=== PATIENT | female | born 1950 | race Caucasian/White ===

== ENCOUNTER → 2016-11-09 | Outpatient (CLI) | payer OTHER ==
[~2016-11-09] MED LIST: ACET-1487 PO; ACET1TAB84 PO; AGM875 PO; ASPCH81 PO; ASPI81TA28 PO; BNC4025 PO; CENTTAB41; DUCOLAX; LOSA100T33 PO; MULT-845 PO; POTA-327 PO; POTA20TA13 PO; VNTHFA/IN INH
[2016-11-09 17:08] LABS: BASO % 0.3 %; BASO ABS # 0.02 K/uL (0-0.2); COMPLETE YES; HEMATOCRIT 42.8 % (37-47); IG% 0.2 %; LYMPH % 21.6 %; LYMPH ABS # 1.34 K/uL (1.2-3.4); MEAN CELL VOLUME 89.5 fL (80-100); MEAN CORPUSCULAR HEMOGLOBIN 30.8 pg (25-34); MEAN CORPUSCULAR HGB CONC 34.3 g/dl (32-36); MEAN PLATELET VOLUME 9.9 fL (7.4-10.4); MONO % 9.2 %; NEUT % 67.7 %; PLATELET COUNT 291 K/uL (130-400); RED BLOOD COUNT 4.78 M/uL (4.2-5.4); WHITE BLOOD COUNT 6.21 K/uL (4.8-10.8)
[2016-11-09 17:26] LABS: ALT/SGPT 28 U/L (12-78); AST/SGOT 18 U/L (15-37); BLOOD UREA NITROGEN 20 mg/dl (7-18); BUN/CREATININE RATIO 27.6 (10-20); CALCIUM 9.2 mg/dl (8.5-10.1); CARBON DIOXIDE 31 mmol/L (21-32); CHLORIDE 105 mmol/L (98-107); CREATININE 0.74 mg/dl (0.60-1.20); GLUCOSE 100 mg/dl (70-99); POTASSIUM 3.9 mmol/L (3.5-5.1); SODIUM 142 mmol/L (136-145)
[2016-11-09 17:37] LABS: ALB/GLOB RATIO 1.1 (0.9-2); ALKALINE PHOSPHATASE 89 U/L (45-117); CHOLESTEROL 140 mg/dl (0-200); CHOLESTEROL/HDL RATIO 2.5; HDL CHOLESTEROL 55 mg/dl; LDL CHOLESTEROL CALCULATED 52 mg/dl; THYROID STIMULATING HORMONE 0.844 uIu/ml (0.300-4.500); TRIGLYCERIDES 166 mg/dl (0-150); VERY LOW DENSITY LIPOPROT CALC 33 mg/dl
== END | disposition home or self-care (01) ==
LOC: C.LABBC 14:00
PROVIDERS: ATTEND Internal Medicine Geriatric Medicine
DX: I10 Essential (primary) hypertension (principal); R73.9 Hyperglycemia, unspecified; E78.5 Hyperlipidemia, unspecified; E66.9 Obesity, unspecified

== ENCOUNTER 2017-04-28 16:14 | Emergency (ER) | payer OTHER ==
[~2017-04-28] VITALS: Ht 162.6 cm; Wt 132.3 kg
[~2017-04-28 16:14] MED LIST changes: -ACET-1487 PO; -ASPI81TA28 PO; -LOSA100T33 PO; -MULT-845 PO; -POTA20TA13 PO; -VNTHFA/IN INH
[2017-04-28 16:19] VITALS: TEMP 36.4; Ht 162.6 cm; Wt 132.3 kg
[2017-04-28] MEDS ORDERED: ALBUT/IPRATROP 3MG/0.5MG NEB 3 ML VIAL INH STA (16:24)
--- NOTE | 2017-04-28 16:39 | EMERGENCY ROOM VISIT NOTE ---
History Report prepared by Lauri: Abhi Greenberg Under the Supervision of: Dr. Yuri Plasencia M.D. First contact with patient: 16:23 Chief Complaint: SHORTNESS OF BREATH Stated Complaint: TROUBLE BREATHING History of Present Illness The patient is a 66 year old female who presents to the Emergency Room with complaints of persistent shortness of breath on exertion that started over a week ago. She says that she had a cold over 3 weeks ago, and saw her doctor who put her on Augmentin, which cleared up her symptoms. The patient states that over a week ago, she walked to the grocery store, and started to feel tired with shaking. She says she then got very short of breath and sweaty walking back from the grocery store. The patient was seen for her shortness of breath around 3 days ago at [facility], and was put on Prednisone. The patient says that the medications have not been working, and she used to walk 2 miles per day but cannot anymore. She adds that she has had a bit of a cough with the exertional shortness of breath. The patient says that when she is resting she feels fine, and she has been sleeping well. She denies any leg swelling or notable urinary symptoms. The patient's [id number] notes that the patient' s used to smoke cigarettes, but the patient has never smoked. She notes no history of COPD, emphysema, blood clots in her legs or lungs, or pneumonia. She has not had any recent long car, plane, or train trips. Source of History: patient, family Onset: Over a week ago Position: other (global - shortness of breath on exertion) Timing: other (persistent) Modifying Factors (Worsening): exertion Modifying Factors (Relieving): rest Associated Symptoms: + fatigue, No urinary symptoms Note: Associated symptoms: Got sweaty and shaky walking back from grocery store. Denies leg swelling. Review of Systems See HPI for pertinent positives & negatives. A total of 10 systems reviewed and were otherwise negative. Past Medical & Surgical Medical Problems: (1) HTN (hypertension) (2) Kidney stones Family History Diabetes mellitus FH: heart disease FHx: gallbladder disease Hypertension Kidney disease Social History Smoking Status: Never Smoker Marital Status: Occupation Status: retired Current/Historical Medications Scheduled Acetaminophen (Tylenol Arthritis Ext Rel), 1,300 MG PO HS Albuterol Hfa (Ventolin Hfa), 2-4 PUFFS INH Q6H Aspirin (Aspirin Ec), 81 MG PO QAM Hctz/Losartan (Hyzaar 12.5MG/100MG), 1 TAB PO QAM Multiple Vitamins W/ Minerals (Centrum Silver Adult 50+), 1 TAB PO QAM Potassium Chloride Microencaps (Potassium Chloride Er), 20 MEQ PO QAM Allergies Coded Allergies: Latex (Verified Allergy, Mild, ., 04/20/13) ITCHINESS OF HANDS WITH LATEX GLOVES Physical Exam Vital Signs Date Time Temp Pulse Resp B/P (MAP) Pulse Ox O2 Delivery O2 Flow Rate FiO2 04/28/17 18:56 70 20 191/103 99 04/28/17 18:15 76 20 192/94 96 Room Air 04/28/17 17:19 84 04/28/17 16:50 96 Room Air 04/28/17 16:30 96 Room Air 04/28/17 16:19 36.4 80 24 187/99 93 Physical Exam GENERAL: Patient is in no acute distress. HEENT: No acute trauma, normocephalic atraumatic, mucous membranes moist, no nasal congestion, no scleral icterus. NECK: No stridor, no adenopathy, no meningismus, trachea is midline. LUNGS: Decreased breath sounds. Breath sounds are equal bilaterally. No wheezing or rhonchi. HEART: Without murmurs gallops or rubs, regular rate and rhythm. ABDOMEN: Soft, nontender, bowel sounds positive, no hernias, no peritonitis. EXTREMITIES: Mild bilateral pedal edema. No cyanosis, full range of motion of all the joints without pain or difficulty, no signs for acute trauma. NEUROLOGIC: Oriented x 3, no acute motor or sensory deficits, no focal weakness. SKIN: No rash, no jaundice, no diaphoresis. Medical Decision & Procedures ER Provider Diagnostic Interpretation: X-ray results as stated below per interpretation by me and the radiologist: CHEST ONE VIEW PORTABLE CLINICAL HISTORY: Respiratory distress COMPARISON STUDY: No previous studies for comparison. FINDINGS: The cardiac and mediastinal contours are normal. There is no evidence of focal pulmonary consolidation. There is no evidence of failure. No pleural effusions are visualized.[ IMPRESSION: No active disease in the chest. Electronically signed by: Moises Jones M.D. 04/28/2017 4:56 PM Dictated Date/Time: 04/28/2017 4:55 PM Laboratory Results 04/28/17 17:20 Red Blood Count 5.11, Mean Corpuscular Volume 88.6, Mean Corpuscular Hemoglobin 31.7, Mean Corpuscular Hemoglobin Concent 35.8, Mean Platelet Volume 9.4, Neutrophils (%) (Auto) 72.5, Lymphocytes (%) (Auto) 21.8, Monocytes (%) (Auto) 4.9, Eosinophils (%) (Auto) 0.1, Basophils (%) (Auto) 0.3, Neutrophils # (Auto) 5.53, Lymphocytes # (Auto) 1.66, Monocytes # (Auto) 0.37, Eosinophils # (Auto) 0.01, Basophils # (Auto) 0.02 04/28/17 17:20 Test 04/28/17 17:00 04/28/17 17:20 Urine Color YELLOW Urine Appearance CLEAR (CLEAR) Urine pH >= 9.0 (4.5-7.5) Urine Specific Biggers 1.012 (1.000-1.030) Urine Protein NEG (NEG) Urine Glucose (UA) NEG (NEG) Urine Ketones NEG (NEG) Urine Occult Blood 1+ (NEG) Urine Nitrite NEG (NEG) Urine Bilirubin NEG (NEG) Urine Urobilinogen NEG (NEG) Urine Leukocyte Esterase NEG (NEG) Urine WBC (Auto) 1-5 /hpf (0-5) Urine RBC (Auto) 5-10 /hpf (0-4) Urine Hyaline Casts (Auto) 0 /lpf (0-5) Urine Epithelial Cells (Auto) 0-5 /lpf (0-5) Urine Bacteria (Auto) NEG (NEG) White Blood Count 7.62 K/uL (4.8-10.8) Red Blood Count 5.11 M/uL (4.2-5.4) Hemoglobin 16.2 g/dL (12.0-16.0) Hematocrit 45.3 % (37-47) Mean Corpuscular Volume 88.6 fL (80-100) Mean Corpuscular Hemoglobin 31.7 pg (25-34) Mean Corpuscular Hemoglobin Concent 35.8 g/dl (32-36) Platelet Count 316 K/uL (130-400) Mean Platelet Volume 9.4 fL (7.4-10.4) Neutrophils (%) (Auto) 72.5 % Lymphocytes (%) (Auto) 21.8 % Monocytes (%) (Auto) 4.9 % Eosinophils (%) (Auto) 0.1 % Basophils (%) (Auto) 0.3 % Neutrophils # (Auto) 5.53 K/uL (1.4-6.5) Lymphocytes # (Auto) 1.66 K/uL (1.2-3.4) Monocytes # (Auto) 0.37 K/uL (0.11-0.59) Eosinophils # (Auto) 0.01 K/uL (0-0.5) Basophils # (Auto) 0.02 K/uL (0-0.2) RDW Standard Deviation 40.1 fL (36.4-46.3) RDW Coefficient of Variation 12.5 % (11.5-14.5) Immature Granulocyte % (Auto) 0.4 % Immature Granulocyte # (Auto) 0.03 K/uL (0.00-0.02) Prothrombin Time 10.6 SECONDS (9.0-12.0) Prothromb Time International Ratio 1.0 (0.9-1.1) Activated Partial Thromboplast Time 25.9 SECONDS (21.0-31.0) Partial Thromboplastin Ratio 1.0 Anion Gap 8.0 mmol/L (3-11) Est Creatinine Clear Calc Drug Dose 97.2 ml/min Estimated GFR () 94.1 Estimated GFR (Non- 81.2 BUN/Creatinine Ratio 29.3 (10-20) Calcium Level 9.9 mg/dl (8.5-10.1) Total Bilirubin 1.1 mg/dl (0.2-1) Aspartate Amino Transf (AST/SGOT) 26 U/L (15-37) Alanine Aminotransferase (ALT/SGPT) 35 U/L (12-78) Alkaline Phosphatase 84 U/L (45-117) Troponin I < 0.015 ng/ml (0-0.045) Total Protein 7.3 gm/dl (6.4-8.2) Albumin 4.0 gm/dl (3.4-5.0) Globulin 3.3 gm/dl (2.5-4.0) Albumin/Globulin Ratio 1.2 (0.9-2) Chemistry Specimen Hemolysis Laboratory results reviewed by me. D-dimer of 276: within normal range. Medications Administered Medications (Trade) Dose Ordered Sig/Kimberley Route Start Time Stop Time Status Last Admin Dose Admin Albuterol/ Ipratropium (Duoneb) 3 ml NOW STAT INH 04/28/17 16:24 04/28/17 16:34 DC 04/28/17 17:01 3 ML Albuterol (Ventolin Hfa Inhaler) 2 puffs NOW ONCE INH 04/28/17 18:30 04/28/17 18:31 DC 04/28/17 18:52 2 PUFFS ECG Indication: SOB/dyspnea Rate (beats per minute): 69 Rhythm: normal sinus Findings: no acute ischemic change, no ectopy, other (LVH) ED Course 1623: The patient was evaluated in room A10. A complete history and physical exam was performed. 1624: Ordered Duoneb 3 ml INH. 1830: Ordered Ventolin Hfa Inhaler 2 puffs INH. 1839: Reevaluated the patient and she is resting comfortably. Discussed results and discharge instructions: she verbalized understanding and agreement. The patient is ready for discharge. Medical Decision Differential diagnosis includes but is not limited to bronchitis or pneumonia, CHF, bronchospasm, PE, cardiac ischemia, anemia, electrolyte imbalance. There is no leukocytosis or concerning anemia. No significant electrolyte abnormality, kidney failure or hepatitis. EKG shows a sinus rhythm, no acute ischemia. Cardiac enzyme testing times one is not consistent with acute cardiac injury. Urinalysis does not show evidence for infection. Chest x-ray does not show CHF or pneumonia. There is no pneumothorax. D-dimer testing is negative. With a negative d-dimer and my low suspicion for PE, I will stop the workup for this diagnosis. The patient was given a DuoNeb, this helped her breathing markedly. She received albuterol via [facility]. The patient was somewhat hypertensive while in our department. This may be a situational hypertension but she should follow with her doctors office for a recheck. She is asymptomatic with the higher blood pressure. I think the patient has an acute bronchitis with bronchospasm. The bronchospasm has caused her dyspnea. She already had antibiotics. She is currently on prednisone. I'm going to add albuterol. She should follow with her doctor and return here if not improving or worsening. Medication Reconcilliation Current Medication List: was personally reviewed by me Blood Pressure Screening Patient's blood pressure: Elevated blood pressure Blood pressure disposition: Referred to PCP Impression Primary Impression: SOB (shortness of breath) Additional Impressions: Acute bronchitis Bronchospasm Scribe Attestation The scribe's documentation has been prepared under my direction and personally reviewed by me in its entirety. I confirm that the note above accurately reflects all work, treatment, procedures, and medical decision making performed by me. Departure Information Dispostion Home / Self-Care Prescriptions Albuterol Hfa (VENTOLIN HFA) 200 Puffs/07759 Mcg Aers 2-4 PUFFS INH Q6H, #1 INHALER Prov: Yuri Plasencia M.D. 04/28/17 Referrals Ab Morel M.D. (PCP) Patient Instructions My [facility] Additional Instructions continue the prednisone start albuterol 3 puffs every 4 hours as needed rest return for worsening breathing or if not improving lab testing and imaging was all ok today Problem Qualifiers Additional Impressions: Acute bronchitis Bronchitis organism: unspecified organism Qualified Codes: J20.9 - Acute bronchitis, unspecified
[2017-04-28 16:50] VITALS: O2SAT 96
--- NOTE | 2017-04-28 16:57 | DIAGNOSTIC IMAGING REPORT ---
CHEST ONE VIEW PORTABLE CLINICAL HISTORY: Respiratory distress COMPARISON STUDY: No previous studies for comparison. FINDINGS: The cardiac and mediastinal contours are normal. There is no evidence of focal pulmonary consolidation. There is no evidence of failure. No pleural effusions are visualized.[ IMPRESSION: No active disease in the chest. Electronically signed by: Moises Jones M.D. 04/28/2017 4:56 PM Dictated Date/Time: 04/28/2017 4:55 PM
[2017-04-28 17:07] LABS: URINE APPEARANCE CLEAR (CLEAR); URINE BILIRUBIN NEG (NEG); URINE COLOR YELLOW; URINE EPITHELIAL CELL AUTO 0-5 /lpf (0-5); URINE NITRITE NEG (NEG); URINE PH >= 9.0 (4.5-7.5); URINE SPECIFIC GRAVITY 1.012 (1.000-1.030); UROBILINOGEN NEG (NEG)
[2017-04-28] MEDS ORDERED: MULT-845 PO (17:09)
[2017-04-28] MEDS ORDERED: POTA20TA13 PO (17:09)
[2017-04-28] MEDS ORDERED: ACET-1487 PO (17:09)
[2017-04-28] MEDS ORDERED: LOSA100T26 PO (17:09)
[2017-04-28] MEDS ORDERED: ASPI81TA28 PO (17:09)
[2017-04-28 17:19] LABS: MANUAL MICROSCOPIC REQUIRED? NO; REVIEW REQ? NO
[2017-04-28 17:30] LABS: BASO % 0.3 %; BASO ABS # 0.02 K/uL (0-0.2); COMPLETE YES; EOS % 0.1 %; HEMATOCRIT 45.3 % (37-47); IG% 0.4 %; LYMPH % 21.8 %; LYMPH ABS # 1.66 K/uL (1.2-3.4); MEAN CELL VOLUME 88.6 fL (80-100); MEAN CORPUSCULAR HEMOGLOBIN 31.7 pg (25-34); MEAN CORPUSCULAR HGB CONC 35.8 g/dl (32-36); MEAN PLATELET VOLUME 9.4 fL (7.4-10.4); MONO % 4.9 %; NEUT % 72.5 %; PLATELET COUNT 316 K/uL (130-400); RED BLOOD COUNT 5.11 M/uL (4.2-5.4); WHITE BLOOD COUNT 7.62 K/uL (4.8-10.8)
[2017-04-28 17:42] LABS: PROTHROMBIN TIME (PATIENT) 10.6 SECONDS (9.0-12.0)
[2017-04-28 18:10] LABS: ALB/GLOB RATIO 1.2 (0.9-2); ALKALINE PHOSPHATASE 84 U/L (45-117); ALT/SGPT 35 U/L (12-78); AST/SGOT 26 U/L (15-37); BLOOD UREA NITROGEN 22 mg/dl (7-18); BUN/CREATININE RATIO 29.3 (10-20); CALCIUM 9.9 mg/dl (8.5-10.1); CARBON DIOXIDE 27 mmol/L (21-32); CHLORIDE 105 mmol/L (98-107); CREATININE 0.76 mg/dl (0.60-1.20); GLUCOSE 105 mg/dl (70-99); POTASSIUM 4.2 mmol/L (3.5-5.1); SODIUM 140 mmol/L (136-145)
[2017-04-28] MEDS ORDERED: ALBUTEROL HFA 8 GM INHALER INH ONE (18:30)
[2017-04-28] MEDS ORDERED: VNTHFA/IN INH (18:44)
[2017-04-28 18:56] VITALS: BP 191/103; PULSE 70; O2SAT 99
== END 2017-04-28 18:58 | disposition home or self-care (01) ==
LOC: C.EDB 16:15 → C.EDA 18:58
DX: J20.9 Acute bronchitis, unspecified (principal); I10 Essential (primary) hypertension; Z87.442 Personal history of urinary calculi; Z79.82 Long term (current) use of aspirin; Z79.899 Other long term (current) drug therapy; Z91.040 Latex allergy status; Z83.3 Family history of diabetes mellitus; Z82.49 Family history of ischemic heart disease and other diseases of the circulatory system; Z83.79 Family history of other diseases of the digestive system; Z84.1 Family history of disorders of kidney and ureter

== ENCOUNTER → 2017-05-04 | Outpatient (CLI) | payer OTHER ==
[~2017-05-04] MED LIST changes: +ACET-1487 PO; -ACET1TAB84 PO; -AGM875 PO; -ASPCH81 PO; +ASPI81TA28 PO; -BNC4025 PO; -CENTTAB41; -DUCOLAX; +LOSA100T26 PO; +MULT-845 PO; +OPTIRAY 320 IV PRN; -POTA-327 PO; +POTA20TA13 PO; +VNTHFA/IN INH
--- NOTE | 2017-05-04 14:13 | DIAGNOSTIC IMAGING REPORT ---
CT ANGIOGRAM OF THE CHEST CLINICAL HISTORY: Atypical chest pain COMPARISON STUDY: Chest x-ray dated 04/28/2017 TECHNIQUE: Following the IV administration of 98 mL of Optiray-320, CT angiogram of the thorax was performed from the thoracic inlet to the lung bases utilizing the pulmonary embolus protocol. Images are reviewed in the axial, sagittal, and coronal planes. IV contrast was administered without complication. MIP imaging was performed. A dose lowering technique was utilized adhering to the principles of ALARA. CT DOSE: 503.55 mGycm FINDINGS: No pathologically enlarged axillary mediastinal or hilar lymph nodes were visualized. The ascending thoracic aorta measures 35 mm. There were no pulmonary artery filling defects to indicate acute pulmonary embolism. No pleural effusions are visualized. There are mild dependent atelectatic changes. There is no focal pulmonary consolidation. IMPRESSION: 1. No evidence of acute pulmonary embolism 2. No evidence of focal pulmonary consolidation Electronically signed by: Moises Jones M.D. 05/04/2017 2:12 PM Dictated Date/Time: 05/04/2017 2:01 PM
== END | disposition home or self-care (01) ==
LOC: C.CTS 12:52
PROVIDERS: ATTEND Internal Medicine Geriatric Medicine
DX: R05 Cough (principal); R06.02 Shortness of breath

== ENCOUNTER → 2017-05-31 | Outpatient (CLI) | payer OTHER ==
[~2017-05-31] MED LIST changes: -OPTIRAY 320 IV PRN
--- NOTE | 2017-06-04 12:30 | CODING QUERY MEDICAL NECESSITY ---
SUPPORTING DIAGNOSIS NEEDED A supporting diagnosis is required for the test/procedure performed on this patient in order for us to be reimbursed by the patient's insurance. Please provide a supporting diagnosis for the following test/procedure listed below next to the test name along with your signature. *If there is no additional diagnosis for this patient that would support the following test/procedure please document that below next to the test/procedure. Test(s)/Procedure(s) that require a supporting diagnosis: * DXA, BONE DENSITY AXIAL DIAGNOSIS: Provider Signature: Date: Thank you Stef[employer] Once completed, please kindly fax back to [phone] For questions please call [phone]
== END | disposition home or self-care (01) ==
LOC: C.MAMM 10:14
PROVIDERS: ATTEND Physician Assistant
DX: Z00.00 Encounter for general adult medical examination without abnormal findings (principal)

== ENCOUNTER → 2017-06-04 | Outpatient (CLI) | payer OTHER ==
[~2017-06-04] MED LIST changes: +ATROPINE SULFATE 0.1 MG/ML 5ML SYR ONE; +DOBUTamine 500MG / 250ML D5W ONE; -LOSA100T26 PO; +LOSA100T33 PO; +METOPROLOL TARTRATE 1 MG/ML VIAL ONE
--- NOTE | 2017-06-04 13:11 | DOBUTAMINE ECHO ---
*NOTICE TO RECEIVING LIBERTARIAN AGENCY This information is strictly Confidential and protected under [place] law. [place] law prohibits you from making any further disclosure of this information unless further disclosure is expressly permitted by the written consent of the person to whom it pertains or is authorized by law. A general authorization for the release of medical or other information is not sufficient for this purpose. Hospital accepts no responsibility if the information is made available to any other person, INCLUDING THE PATIENT. Interpretation Summary * Name: MAGDY MCLAUGHLIN Study Date: 06/04/2017 11:25 AM BP: 178/58 mmHg * Patient Location: [facility] HR: 74 * : 1950 (M/d/yyyy) Gender: Female Height: 64 in * Age: 66 yrs Ethnicity: [place] Weight: 291 lb * Ordering Physician: Ab Morel MD * Referring Physician: Ab Morel MD * Performed By: Brit Harvey [facility] * * Reason For Study: Shortness of breath * BSA: 2.3 m2 * -- Conclusions -- * 1. Negative dobutamine stress echo for ischemia at 95% MPHR. * 2. Negative dobutamine ECG. * 3. Grossly normal resting LV size and function. Procedure Details * DOBUTAMINE ECHO, CPT#25136 * A contrast injection of Definity was performed to improve assessment of LV function. * Contrast was injected into an intravenous site in the left arm. * One vial of Definity ultrasound contrast was diluted in normal saline to a total volume of 10 ml. A total of '12' ml of solution was administered during imaging. * Lot # [id number] of Definity utilized for procedure. * Expiration date JUL 26. * The attending nurse who injected the contrast agent was Deanne Levine RN. Left Ventricular Findings with Stress * This was essentially a normal study. Left Ventricle * The left ventricle is grossly normal size. * Ejection Fraction = 55-60%. * The left ventricular wall motion is normal at rest. * The left ventricular ejection fraction increases normally with stress. The left ventricular end-systolic cavity size reduces post-stress (normal response). The left ventricular wall motion with stress is normal. Pericardium * There is no pericardial effusion. Stress Parameters * Normal baseline electrocardiogram. * Stress ECG: No ST changes. Isolated premature ventricular contractions were present. * Stress ECG: No ST changes. No arrhythmias. * The stress portion of this study was personally supervised by the undersigned interpreting physician. * Rest heart rate was '74' BPM. * Rest blood pressure was '178/58' * Maximum heart rate achieved was 146 bpm. * Maximum heart rate was 95 % of maximum age-predicted heart rate. * Maximum blood pressure was '200/71' * Maximum Dobutamine infusion rate was '40' mcg/kg/min. * Dobutamine infusion was terminated due to achieving target heart rate * A total of 5 mg of IV Metoprolol was administered to reverse Dobutamine-induced tachycardia. Left Ventricular Findings with Stress * The study was diagnostic quality.
== END | disposition home or self-care (01) ==
LOC: C.CPL 11:04
PROVIDERS: ATTEND Internal Medicine Geriatric Medicine
DX: R06.02 Shortness of breath (principal)

== ENCOUNTER → 2017-07-19 | Outpatient (CLI) | payer OTHER ==
[~2017-07-19] MED LIST changes: -ATROPINE SULFATE 0.1 MG/ML 5ML SYR ONE; -DOBUTamine 500MG / 250ML D5W ONE; -METOPROLOL TARTRATE 1 MG/ML VIAL ONE
--- NOTE | 2017-07-20 07:49 | MAMMOGRAPHY REPORT ---
BILATERAL DIGITAL DIAGNOSTIC MAMMOGRAM TOMOSYNTHESIS WITH CAD: 07/19/2017 CLINICAL HISTORY: 66-year-old woman with a family history of breast cancer presents for two-year foll ow-up of probably benign groupings of punctate and amorphous microcalcifications in the upper outer p osterior right breast. Also due for annual bilateral exam. TECHNIQUE: Bilateral CC and MLO 2-D and tomosynthesis images were obtained. Current study was also e valuated with a Computer Aided Detection (CAD) system. COMPARISON: Comparison is made to exams dated: 07/17/2016 mammogram, 01/24/2016 mammogram, 07/24/2015 mammogram, 07/15/2015 mammogram, 07/12/2014 mammogram, and 07/10/2013 mammogram - [facility]. BREAST COMPOSITION: There are scattered areas of fibroglandular density in both breasts. FINDINGS: The parenchymal pattern is similar to prior mammograms. There is stable nodularity of the right breast including a prominent circumscribed mass in the medial breast. There are benign-appeari ng coarse calcifications in both breasts. The spot magnification views redemonstrate 2 faint groupin gs of punctate and amorphous microcalcifications in the upper outer posterior right breast measuring approximately 3 mm. These are stable based on prior spot magnification views dating back to at least 01/24/2016 and likely 07/24/2015, therefore likely benign. No associated architectural distortion, obvious mass or asymmetry. No other new suspicious calcifications are identified bilaterally. Anoth er 12 month follow-up diagnostic mammogram including spot magnification views is recommended to ensur e longer stability. IMPRESSION: ACR-BI-RADS CATEGORY 3: PROBABLY BENIGN A 12 month follow-up bilateral diagnostic mammogram including spot magnification views of the right b reast is recommended to ensure longer stability of 2 faint groupings of punctate and amorphous microc alcifications in the right upper outer quadrant. Bilateral screening mammography will also be due at that time. These results and recommendations were discussed with the patient at the time of the exam. Approximately 10% of breast cancers are not detected with mammography. A negative mammographic report should not delay biopsy if a clinically suggestive mass is present. Emilee Gordon M.D. ay/:07/19/2017 15:18:15 Digital Marketing Project Manager: Светлана SCHNEIDER)([place]), [facility] letter sent: Follow Up Recommended 3 BI-RADS Code: ACR-BI-RADS Category 3: Probably Benign
== END | disposition home or self-care (01) ==
LOC: C.MAMM 13:31
PROVIDERS: ATTEND Internal Medicine Geriatric Medicine
DX: R92.0 Mammographic microcalcification found on diagnostic imaging of breast (principal); Z80.3 Family history of malignant neoplasm of breast

== ENCOUNTER → 2017-11-10 | Outpatient (CLI) | payer OTHER ==
[~2017-11-10] MED LIST changes: -VNTHFA/IN INH
[2017-11-10 17:31] LABS: BLOOD UREA NITROGEN 21 mg/dl (7-18); CALCIUM 9.1 mg/dl (8.5-10.1); CARBON DIOXIDE 31 mmol/L (21-32); CREATININE 0.77 mg/dl (0.60-1.20); GLUCOSE 92 mg/dl (70-99); POTASSIUM 3.8 mmol/L (3.5-5.1); SODIUM 137 mmol/L (136-145)
[2017-11-11 06:35] LABS: HEMOGLOBIN A1C 5.7 % (4.5-5.6)
== END | disposition home or self-care (01) ==
LOC: C.LABBC 14:01
PROVIDERS: ATTEND Internal Medicine Geriatric Medicine
DX: I10 Essential (primary) hypertension (principal); R92.8 Other abnormal and inconclusive findings on diagnostic imaging of breast; R73.9 Hyperglycemia, unspecified

== ENCOUNTER 2023-10-20 12:06 | Inpatient (IN) ==
[2023-10-20 13:21] LABS: Appearance Urine Clear (Clear); Bacteria Urine Automated Negative (Negative); Bilirubin Urine Negative (Negative); Blood Urine 3+ (Negative); Cast Urine Automated 0 /lpf (0-5); Color Urine Yellow; Glucose Urine UA Negative (Negative); Ketones Urine Negative (Negative); Leukocyte Esterase Urine Negative (Negative); Nitrite Urine Negative (Negative); Protein Urine Negative (Negative); Specific Gravity Urine 1.005 (1.000-1.030); Urobilinogen Urine Negative (Negative)
[2023-10-20 13:29] LABS: Basophils # (auto) 0.03 K/uL (0.00-0.20); Basophils % (auto) 0.5 %; Eosinophils # (auto) 0.02 K/uL (0.00-0.50); Eosinophils % (auto) 0.3 %; Hematocrit (blood only) 45.1 % (37.0-47.0); Immature Granulocytes # (auto) 0.03 K/uL (0.01-0.20); Immature Granulocytes % (auto) 0.5 %; Lymphocytes # (auto) 1.41 K/uL (1.20-3.40); Mean Corpuscular Hemoglobin 30.5 pg (25.0-34.0); Mean Corpuscular Hgb Conc 35.5 g/dL (32.0-36.0); Mean Corpuscular Volume 86.1 fL (80.0-100.0); Mean Platelet Volume 9.3 fL (9.4-12.4); Monocytes % (auto) 4.7 %; Neutrophils # (auto) 4.61 K/uL (1.40-6.50); Platelet Count 298 K/uL (130-400); RDW Coefficient of Variation 11.7 % (11.5-14.5); RDW Standard Deviation 36.6 fL (36.4-46.3); Red Blood Count 5.24 M/uL (4.20-5.40)
[2023-10-20 13:54] LABS: Alanine Aminotransferase 24 U/L (7-52); Albumin Globulin Ratio 1.9 (0.9-2); Albumin Level 4.7 gm/dl (3.4-5.0); Alkaline Phosphatase 88 U/L (34-104); Anion Gap 10 (3-11); Aspartate Aminotransferase 30 U/L (13-39); BUN Creatinine Ratio 26.3 (10-20); Bilirubin,Total 1.3 mg/dl (0.2-1.0); Blood Urea Nitrogen 20 mg/dl (6-23); Calcium 10.1 mg/dl (8.6-10.3); Carbon Dioxide 24 mmol/L (21-32); Chloride 104 mmol/L (98-107); Est GFR (African American) 89.6 ml/min; Est GFR (Non-African American) 77.3 ml/min; Globulin 2.5 gm/dl (2.5-4.0); Glucose 126 mg/dl (70-99(Fasting)); Lipase 27 U/L (11-82); Potassium 3.6 mmol/L (3.5-5.1); Sodium 138 mmol/L (136-145); Total Protein 7.2 gm/dl (6.0-8.3)
--- NOTE | 2023-10-20 14:53 | Emergency Department Note ---
ED Provider Note History of Present Illness Chief Complaint: Kidney Stone Stated Complaint: AB PAIN Time Seen by Provider: 10/20/23 14:52 This is a 73-year-old female with a history of kidney stones, reflux, who presents to the emergency department with pressure in her lower abdomen as well as the right lower abdomen with associated urinary urgency and frequency. Symptoms started earlier this morning. Pain is relatively constant but does seem to come and go in waves. She has a little bit of pain in her right flank. She woke up and had several episodes of emesis this morning but has not had any vomiting since. Was able to eat some breakfast earlier today. She describes her discomfort as "pressure" in the lower abdomen. She has not had any fevers but felt cold earlier today. Denies any chest pain or shortness of breath. History of cholecystectomy, still has her appendix. Patient saw urology yesterday for cystoscopy due to hematuria. Has had a stent placed in 2019 for kidney stone. Still has her appendix. Home Medications Medication Instructions Recorded Confirmed Type acetaminophen 650 mg 650 mg PO HS 01/03/19 10/20/23 History tablet,extended release (Tylenol Arthritis Pain) magnesium 250 mg tablet 250 mg PO PM 01/03/19 10/20/23 History multivitamin 1 tab PO QAM 01/03/19 10/20/23 History cholecalciferol (vitamin D3) 50 50 mcg PO DAILY 04/24/20 10/20/23 History mcg (2,000 unit) capsule amlodipine 2.5 mg tablet 2.5 mg PO DAILY #90 tabs 12/26/21 10/20/23 Rx pantoprazole 20 mg tablet,delayed 20 mg PO DAILY 10/19/23 10/20/23 History release cetirizine 10 mg tablet 10 mg PO DAILY 10/20/23 10/20/23 History losartan 100 1 tab PO QAM 10/20/23 10/20/23 History mg-hydrochlorothiazide 25 mg tablet melatonin 1 mg tablet 1 mg PO HS 10/20/23 10/20/23 History polyethylene glycol 3350 17 17 g PO DAILY 10/20/23 10/20/23 History gram/dose oral powder potassium chloride 20 mEq 20 meq PO QAM 10/20/23 10/20/23 History tablet,extended release Allergies Allergy/AdvReac Type Severity Reaction Status Date / Time latex Allergy Mild HANDS ITCH Verified 10/20/23 16:15 WITH GLOVES MELISSA Inhibitors AdvReac Intermediate Cough Verified 10/20/23 16:15 Past Med/Surg History Medical History Prediabetes Ureterolithiasis Osteopenia (~2019) Dyslipidemia Irritable bowel syndrome GERD (gastroesophageal reflux disease) Hiatal hernia History of skin cancer BCC HTN (hypertension) Surgical History History of cystoscopy WITH LITHOTRIPSY AND STONE REMOVAL History of cardiac cath 2015 OR 2016 [facility]-NO STENTS NEEDED-DONE D/T SOB Nausea and vomiting after administration of anesthetic agent AND SLOW TO WAKE UP History of Mohs micrographic surgery for skin cancer History of cataract surgery R/L History of cholecystectomy History of hysterectomy OVARIES LEFT History of colonoscopy Family History Sister Family history of diabetes mellitus Breast cancer Father Myocardial infarction Hypertension Mother Pancreatic cancer Denies family history of Ovarian cancer Prostate cancer Colorectal cancer Social History Smoking Status: Never smoker Second Hand Exposure: Yes (SPOUSE DID BEFORE HE PASSED); Do You Dip or Chew Tobacco: No; Hx Alcohol Use: No Hx Substance Use: No Preferred Language: Stateless Communication Ability: Effective Visual Impairment: Limited Hearing Ability: Normal Bowling Ball Finisher Required: No Beliefs That Will Affect Care: None marital status: / Current Living Situation: Alone current occupational status: retired Other Information That Helps Us Care for You: No Feels Safe at Home: Yes Safety Concerns: Feels Safe At This Time Childhood Exposure to Second-Hand Smoke: Yes caffeine: No Dental Care, Regularly: No Physical Activity Frequency: Daily Physical Activity Frequency Comment: walking daily Seatbelt Use: always Sunscreen Use: Yes Assistive Devices: Cane, Contacts and Glasses Physical Exam Vital Signs Vital Signs - 24 hr 10/20/23 12:41 10/20/23 15:42 10/20/23 16:04 Temperature 98.2 F Temperature Source Temporal Artery Scan Pulse Rate 77 Pulse Rate [Apical] 76 Respiratory Rate 20 23 Respiratory Effort / Characteristics Non-Labored Spontaneous Non-Labored Spontaneous Respiratory Depth Normal Normal Respiratory Pattern Regular Regular Blood Pressure 150/84 H Blood Pressure [Right Arm] 175/78 H Blood Pressure Mean 106 Blood Pressure Mean [Right Arm] 110 Blood Pressure Position [Right Arm] Semi-fowlers Pulse Oximetry 98 99 99 Oxygen Delivery Method Room Air Room Air Room Air Sepsis Recent Fever Within 48 Hours No Sepsis New/Unexplained Change in Mental Status No Sepsis Action Taken by Nursing No Action Required CONSTITUTIONAL: Well developed, well nourished, mildly uncomfortable, nontoxic, otherwise pleasant. Able to ambulate into the exam room. EYES: conjunctivae normal, extraocular muscles intact. ENMT: External ears normal. Nose with normal external appearance, no congestion. Oral mucous membranes moist. Oropharynx normal. NECK: Full active range of motion. RESPIRATORY: Breathing unlabored and symmetric. Lungs clear to auscultation bilaterally. No wheeze, rales, or rhonchi. CARDIOVASCULAR: Regular rate and rhythm. No murmurs, rubs, or gallops. ABDOMEN: Normal bowel sounds. Abdomen is soft. There is reproducible tenderness in the right lower abdomen, mild reproducible tenderness in the left lower abdomen. Percussion of right CVA region triggers sensation that the patient needs to urinate. MUSCULOSKELETAL: Moves all extremities at all joints without pain or difficulty. SKIN: [place], warm, dry. NEUROLOGIC: Awake, alert, oriented. No focal deficits. Course Administered Medications Ceftriaxone Sodium 2,000 mg/ (Dextrose) 50 mls @ 100 mls/hr IV Q24H [facility]; Protocol Stop: 10/22/23 18:59 Last Infusion: 10/20/23 20:41 Dose: Infused Documented By: Admin: 10/20/23 19:56 Dose: 100 mls/hr Documented By: DEBBIE Sodium Chloride (Nss) 1,000 mls @ 80 mls/hr IV .[id number] [facility] Stop: 10/21/23 07:04 Last Admin: 10/20/23 19:07 Dose: 80 mls/hr Documented By: DEBBIE Melatonin (Melatonin 3 Mg Tab) 1.5 mg PO HS [facility] Stop: 11/19/23 20:59 Last Admin: 10/20/23 21:38 Dose: 1.5 mg Documented By: DEBBIE Phenazopyridine HCl (Phenazopyridine Hcl 100 Mg Tab) 100 mg PO TID PRN PRN Reason: Dysuria Stop: 11/19/23 19:31 Last Admin: 10/20/23 19:56 Dose: 100 mg Documented By: DEBBIE Discontinued Medications Sodium Chloride (Nss) 500 mls @ 999 mls/hr IV .Q31M ONE Stop: 10/20/23 15:34 Last Infusion: 10/20/23 16:31 Dose: Infused Documented By: Admin: 10/20/23 15:14 Dose: 999 mls/hr Documented By: ALDA Acetaminophen (Ofirmev) 1,000 mg in 100 mls @ 400 mls/hr IV NOW STA Stop: 10/20/23 17:04 Last Admin: 10/20/23 19:06 Dose: Not Given Documented By: DEBBIE Ketorolac Tromethamine (Ketorolac Tromethamine 15 Mg/Ml Vial) Confirm Administered Dose 15 mg .ROUTE .STK-MED ONE Stop: 10/20/23 15:05 Last Admin: 10/20/23 15:15 Dose: Not Given Documented By: ALDA Ketorolac Tromethamine (Ketorolac Tromethamine 15 Mg/Ml Vial) 15 mg IV NOW STA Stop: 10/20/23 15:05 Last Admin: 10/20/23 15:15 Dose: 15 mg Documented By: ALDA Miscellaneous (Patient's Height &/Or Weight Needed) 1 each N/A Q2H JOSSE Stop: 11/19/23 16:59 Last Admin: 10/20/23 18:20 Dose: 1 each Documented By: HARSHAL Morphine Sulfate (Morphine Sulfate 2 Mg/Ml Carp) 2 mg IV NOW STA Stop: 10/20/23 16:05 Last Admin: 10/20/23 16:25 Dose: 2 mg Documented By: HARSHAL Tamsulosin HCl (Tamsulosin Hcl 0.4 Mg Cap) 0.4 mg PO NOW ONE Stop: 10/20/23 15:59 Last Admin: 10/20/23 16:25 Dose: 0.4 mg Documented By: HARSHAL Medical Decision Making Differential Diagnosis Ureterolithiasis, hydronephrosis, UTI, pyelonephritis, appendicitis, diverticulitis, bladder perforation, gastroenteritis, doubt pneumonia, doubt pulmonary embolism, among other pathology Laboratory Data 10/20/23 13:07 10/20/23 13:07 Lab Results 10/20/23 10/20/23 Range/Units 12:40 13:07 WBC 6.40 (4.8-10.8) K/ul RBC 5.24 (4.20-5.40) M/uL Hgb 16.0 (12.0-16.0) g/dl Hct 45.1 (37.0-47.0) % MCV 86.1 (80.0-100.0) fL MCH 30.5 (25.0-34.0) pg MCHC 35.5 (32.0-36.0) g/dL RDW Std Deviation 36.6 (36.4-46.3) fL RDW Coeff of Gilda 11.7 (11.5-14.5) % Plt Count 298 (130-400) K/uL MPV 9.3 L (9.4-12.4) fL Immature Gran % (Auto) 0.5 % Neut % (Auto) 72.0 % Lymph % (Auto) 22.0 % [place] % (Auto) 4.7 % Eos % (Auto) 0.3 % Baso % (Auto) 0.5 % Neut # (Auto) 4.61 (1.40-6.50) K/uL Lymph # (Auto) 1.41 (1.20-3.40) K/uL [place] # (Auto) 0.30 (0.11-0.59) K/uL Eos # (Auto) 0.02 (0.00-0.50) K/uL Baso # (Auto) 0.03 (0.00-0.20) K/uL Immature Gran # (Auto) 0.03 (0.01-0.20) K/uL Sodium 138 (136-145) mmol/L Potassium 3.6 (3.5-5.1) mmol/L Chloride 104 (98-107) mmol/L Carbon Dioxide 24 (21-32) mmol/L Anion Gap 10 (3-11) BUN 20 (6-23) mg/dl Creatinine 0.76 (0.6-1.2) mg/dl Est Cr Clr Drug Dosing Not Reportable Est GFR ( Amer) 89.6 ml/min Est GFR (Non-Af Amer) 77.3 ml/min BUN/Creatinine Ratio 26.3 H (10-20) Glucose 126 H (70-99(Fasting)) mg/dl Calcium 10.1 (8.6-10.3) mg/dl Total Bilirubin 1.3 H (0.2-1.0) mg/dl AST 30 (13-39) U/L ALT 24 (7-52) U/L Alkaline Phosphatase 88 (34-104) U/L Total Protein 7.2 (6.0-8.3) gm/dl Albumin 4.7 (3.4-5.0) gm/dl Globulin 2.5 (2.5-4.0) gm/dl Albumin/Globulin Ratio 1.9 (0.9-2) Lipase 27 (11-82) U/L Urine Color Yellow Urine Appearance Clear (Clear) Urine pH 8.0 H (4.5-7.5) Ur Specific [place] 1.005 (1.000-1.030) Urine Protein Negative (Negative) Urine Glucose (UA) Negative (Negative) Urine Ketones Negative (Negative) Urine Blood 3+ H (Negative) Urine Nitrite Negative (Negative) Urine Bilirubin Negative (Negative) Urine Urobilinogen Negative (Negative) Ur Leukocyte Esterase Negative (Negative) Urine WBC (Auto) 1-5 (0-5) /hpf Urine RBC (Auto) 10-30 H (0-4) /hpf U Hyaline Cast (Auto) 0 (0-5) /lpf U Epithel Cells (Auto) 10-20 H (0-5) /lpf Urine Bacteria (Auto) Negative (Negative) Imaging Data Radiologist's Impression: Abdomen/Pelvis CT 10/20/23 13:[address] WITHOUT CONTRAST CT DOSE: 1331.66 mGy.cm HISTORY: Acute right-sided flank pain flank pain TECHNIQUE: Multiaxial CT images of the abdomen and pelvis were performed without contrast. A dose lowering technique was utilized adhering to the principles of ALARA. COMPARISON STUDY: Renal ultrasound 10/11/2023, CT abdomen and pelvis 11/29/2018 FINDINGS: Clear lung bases. No free air. Indeterminate 1.2 cm hypodense splenic lesion. [id number] pancreatic atrophy. Unremarkable left adrenal gland. 11 mm right adrenal gland adenoma. Cholecystectomy. Hepatic steatosis. 4 mm nonobstructing calculus of the inferior pole right kidney. 4 mm calculus of the distal right ureter/ureterovesicular junction results in mild right-sided hydroureteronephrosis. 9 mm nonobstructing calculus of the inferior pole left kidney. 2.3 cm water attenuation structure of the lateral interpolar left kidney with an adjacent punctate calcification. No left-sided ureteral calculi or hydronephrosis. Partial distention of the urinary bladder with air in the bladder lumen. Air also noted within the vaginal introitus with air is associated mild soft tissue thickening. No abdominal aortic aneurysm or lymphadenopathy. No bowel obstruction or bowel wall thickening. Tiny hiatal hernia. Colonic diverticulosis. Normal appendix. No ascites or mesenteric inflammation. Degenerative changes of the spine, pelvis and hips. IMPRESSION: 1. A 4 mm calculus of the distal right ureter/ureterovesicular junction results in mild hydroureteronephrosis. 2. Nonobstructing bilateral nephrolithiasis. 3. No bowel obstruction or bowel wall thickening. 4. Colonic diverticulosis. 5. Hepatic steatosis. ACT 112: Negative or not required by law. The above report was generated using voice recognition software. It may contain grammatical, syntax or spelling errors. Electronically signed by: Chirag Henriquez M.D. 10/20/2023 2:56 PM MDM Narrative This is a 73-year-old female with a history of kidney stones, had a cystoscopy yesterday for gross hematuria who presents to the emergency department with lower abdominal pressure worse on the right, had 2 episodes of emesis today and has urinary urgency and frequency now. See above for further details. Patient mildly uncomfortable but certainly nontoxic and otherwise pleasant. She was able to ambulate into triage room 3 where I initially evaluated her due to high ED volumes. She does have some reproducible tenderness in the lower abdomen worse on the right than the left and percussing the right CVA region elicits a sensation that the patient needs to urinate. Her vitals are reassuring. An IV was inserted and labs were obtained. Patient was given IV fluids and IV Toradol. Labs: No leukocytosis or anemia. No thrombocytopenia. No electrolyte disturbance. Renal function normal. Nonspecific elevation of total bilirubin at 1.3, has had this in the past. No transaminitis. Lipase normal. Urine with 3+ blood and 10-20 epithelial cells however no bacteria, leukocyte esterase, or nitrites are appreciated. CT abdomen and pelvis was obtained demonstrating a 4 mm calculus in the right distal ureter/UVJ with mild hydroureteronephrosis. She also has a small amount of air in her bladder and vaginal introitus. I discussed the case with Emilee Morel FORK REPAIRER with [facility] urology given the patient's recent instrumentation. She states that the air in the bladder is secondary to the cystoscopy and is not concerned about that. She does recommend antibiotics given recent instrumentation I reevaluated the patient at bedside, her pain had improved to some extent however she did still have discomfort. Small dose of morphine was ordered. I reviewed admission versus discharge home with close urology follow-up, and patient felt strongly that she did not feel comfortable going home as she lives at home alone, and I am hesitant to prescribe her narcotic medication given her age and risk for falling. [facility]. Urology requested the patient be n.p.o. after midnight. Case reviewed with ED attending Dr. Burroughs who is agreeable with this plan. Impression Ureterolithiasis, Intractable abdominal pain Discharge Plan Visit Data Chief Complaint: Kidney Stone Stated Complaint: AB PAIN ED Provider: Rolando Burroughs ED Midlevel Provider: Carter Mcpherson Discharge Problem: Ureterolithiasis, Intractable abdominal pain Patient Disposition: Admitted As Inpatient Condition: Fair Discharge Instructions Interventions: ED Discharge Assessment Last Done: 10/20/23 18:36
--- NOTE | 2023-10-20 14:57 | CT Scan Report ---
ABDOMEN AND PELVIS CT WITHOUT CONTRAST CT DOSE: 1331.66 mGy.cm HISTORY: Acute right-sided flank pain flank pain TECHNIQUE: Multiaxial CT images of the abdomen and pelvis were performed without contrast. A dose lo wering technique was utilized adhering to the principles of ALARA. COMPARISON STUDY: Renal ultrasound 10/11/2023, CT abdomen and pelvis 11/29/2018 FINDINGS: Clear lung bases. No free air. Indeterminate 1.2 cm hypodense splenic lesion. [id number] ate pancreatic atrophy. Unremarkable left adrenal gland. 11 mm right adrenal gland adenoma. Cholecyst ectomy. Hepatic steatosis. 4 mm nonobstructing calculus of the inferior pole right kidney. 4 mm calculus of the distal right ure ter/ureterovesicular junction results in mild right-sided hydroureteronephrosis. 9 mm nonobstructing calculus of the inferior pole left kidney. 2.3 cm water attenuation structure of the lateral interpol ar left kidney with an adjacent punctate calcification. No left-sided ureteral calculi or hydronephro sis. Partial distention of the urinary bladder with air in the bladder lumen. Air also noted within t he vaginal introitus with air is associated mild soft tissue thickening. No abdominal aortic aneurysm or lymphadenopathy. No bowel obstruction or bowel wall thickening. Tiny hiatal hernia. Colonic diverticulosis. Normal vicente endix. No ascites or mesenteric inflammation. Degenerative changes of the spine, pelvis and hips. IMPRESSION: 1. A 4 mm calculus of the distal right ureter/ureterovesicular junction results in mild hydroureteron ephrosis. 2. Nonobstructing bilateral nephrolithiasis. 3. No bowel obstruction or bowel wall thickening. 4. Colonic diverticulosis. 5. Hepatic steatosis. ACT 112: Negative or not required by law. The above report was generated using voice recognition software. It may contain grammatical, syntax o r spelling errors. Electronically signed by: Chirag Henriquez M.D. 10/20/2023 2:56 PM
[2023-10-20] MEDS: SODIUM CHLORIDE 0.9% 500 ML IV ONE (15:14)
[2023-10-20] MEDS: KETOROLAC TROMETHAMINE 15 MG/ML VIAL IV STA (15:15)
[2023-10-20] MEDS: KETOROLAC TROMETHAMINE 15 MG/ML VIAL ONE (15:15)
[2023-10-20] MEDS: MoRPHine SULFATE 2 MG/ML CARP IV STA (16:25)
[2023-10-20] MEDS: TAMSULOSIN HCL 0.4 MG CAP PO ONE (16:25)
--- NOTE | 2023-10-20 16:45 | History & Physical Report ---
Date of Service October 20, 2023 Assessment & Plan (1) Ureterolithiasis: (2) Hydronephrosis: Plan: Patient is 73-year-old female with PMH HTN, HLD, prediabetes, GERD, kidney stones, obesity presented to ER with complaint of right lower abdominal pain, urinary frequency started early this morning. Cystoscopy 10/19/23 for painless hematuria. In ER patient afebrile, hypertensive, otherwise vitals stable. No leukocytosis. renal functions WNL, UA +blood CT abd/pelvis: A 4 mm calculus of the distal right ureter/ureterovesicular junction results in mild hydroureteronephrosis. Nonobstructing bilateral nephrolithiasis. No bowel obstruction or bowel wall thickening. Urine culture pending In ER given 500ml NSS, Toradol, morphine. Still with discomfort Gentle IVF Will start Rocephin empirically Strain urine Start Flomax Scheduled Tylenol, Toradol, oxycodone, morphine prn pain Bowel regimen Fall precautions NPO midnight Urology consult CBC, BMP in am (3) HTN (hypertension): Plan: BP elevated in ER. May be secondary to underlying pain Treat pain as above. Monitor BP Continue home amlodipine, losartan, HCTZ (4) GERD (gastroesophageal reflux disease): Plan: Continue PPI (5) Prediabetes: Plan: Diet controlled A1c: 6.0 on 09/17/2023 Random glucose 126 Monitor a.m. glucose on labs (6) Dyslipidemia: Plan: Diet controlled DVT Prophylaxis SCDs in case of possible procedure DNR/DNI as per discussion with pt Follows with Dr Hatfield for routine care Pt was seen and care coordinated with Dr Ko. See addendum I spent a total of 75 minutes reviewing notes, outpatient records, labs, medication, coordinating, documenting and providing care for this patient excluding time spent in the performance of separately billed services. History of Present Illness Chief Complaint: abdominal pain Primary Care Provider: Jimmy Hatfield DO Patient is 73-year-old female with PMH HTN, HLD, prediabetes, GERD, kidney stones, obesity presented to ER with complaint of right lower abdominal pain started early this morning. History obtained from patient, outpatient chart review. Patient had cystoscopy yesterday by Dr. Higginbotham for painless gross hematuria. States this morning RLQ abdominal pain that worsened throughout the day. Also complains of nausea and vomiting once. She reports urinary frequency. Denies any noted dysuria or hematuria. [place] chilled today but denies any known fever. Denies diaphoresis, diarrhea, constipation, [place], dizziness, syncope, neck pain, CP, SOB, cough, sore throat, paresthesias, weakness, extremity edema, rashes. Allergies Allergy/AdvReac Type Severity Reaction Status Date / Time latex Allergy Mild HANDS ITCH Verified 10/20/23 16:15 WITH GLOVES MELISSA Inhibitors AdvReac Intermediate Cough Verified 10/20/23 16:15 Home Medications Medication Instructions Recorded Confirmed Type acetaminophen 650 mg 650 mg PO HS 01/03/19 10/20/23 History tablet,extended release (Tylenol Arthritis Pain) magnesium 250 mg tablet 250 mg PO PM 01/03/19 10/20/23 History multivitamin 1 tab PO QAM 01/03/19 10/20/23 History cholecalciferol (vitamin D3) 50 50 mcg PO DAILY 04/24/20 10/20/23 History mcg (2,000 unit) capsule amlodipine 2.5 mg tablet 2.5 mg PO DAILY #90 tabs 12/26/21 10/20/23 Rx pantoprazole 20 mg tablet,delayed 20 mg PO DAILY 10/19/23 10/20/23 History release cetirizine 10 mg tablet 10 mg PO DAILY 10/20/23 10/20/23 History losartan 100 1 tab PO QAM 10/20/23 10/20/23 History mg-hydrochlorothiazide 25 mg tablet melatonin 1 mg tablet 1 mg PO HS 10/20/23 10/20/23 History polyethylene glycol 3350 17 17 g PO DAILY 10/20/23 10/20/23 History gram/dose oral powder potassium chloride 20 mEq 20 meq PO QAM 10/20/23 10/20/23 History tablet,extended release Past Med/Surg History Medical History Prediabetes Ureterolithiasis Osteopenia (~2019) Dyslipidemia Irritable bowel syndrome GERD (gastroesophageal reflux disease) Hiatal hernia History of skin cancer BCC HTN (hypertension) Surgical History History of cystoscopy WITH LITHOTRIPSY AND STONE REMOVAL History of cardiac cath 2015 OR 2016 [facility]-NO STENTS NEEDED-DONE D/T SOB Nausea and vomiting after administration of anesthetic agent AND SLOW TO WAKE UP History of Mohs micrographic surgery for skin cancer History of cataract surgery R/L History of cholecystectomy History of hysterectomy OVARIES LEFT History of colonoscopy Family History Sister Family history of diabetes mellitus Breast cancer Father Myocardial infarction Hypertension Mother Pancreatic cancer Denies family history of Ovarian cancer Prostate cancer Colorectal cancer Social History Smoking Status: Never smoker Second Hand Exposure: Yes (SPOUSE DID BEFORE HE PASSED); Do You Dip or Chew Tobacco: No; Hx Alcohol Use: No Hx Substance Use: No Preferred Language: [place] Communication Ability: Effective Visual Impairment: Limited Hearing Ability: Normal 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 Beliefs That Will Affect Care: None marital status: / Current Living Situation: Alone current occupational status: retired Other Information That Helps Us Care for You: No Feels Safe at Home: Yes Safety Concerns: Feels Safe At This Time Childhood Exposure to Second-Hand Smoke: Yes caffeine: No Dental Care, Regularly: No Physical Activity Frequency: Daily Physical Activity Frequency Comment: walking daily Seatbelt Use: always Sunscreen Use: Yes Assistive Devices: Cane, Contacts and Glasses Review of Systems Review of Systems: All systems reviewed & are unremarkable except as noted in HPI & below Physical Exam Physical Exam: General: mild distress secondary to abdominal discomfort, obese elderly female Head: normocephalic, atraumatic Eyes: conjunctiva non-injected, anicteric ENT: normal inspection external ears, nose, mucous membranes moist Neck: supple, trachea midline Lungs: clear, no respiratory distress, no wheezing/rhonchi/rales CV: RRR, no murmur, no pretibial edema Abd: protuberant, normal BS, soft, +RLQ tenderness to palpation. no CVA tenderness to palpation Ext: no cyanosis, no calf tenderness Neuro: A&O x 3, no focal deficits noted, normal affect Skin: warm, dry Results & Data Results & Data Vital Signs (Past 12 Hours) Vital Signs Temp Pulse Pulse Resp BP BP Pulse Ox 10/20/23 16:04 99 10/20/23 15:42 76 23 175/78 H 99 10/20/23 12:41 36.8 C 77 20 150/84 H 98 O2 Del Method 10/20/23 16:04 Room Air 10/20/23 15:42 Room Air 10/20/23 12:41 Room Air Laboratory Results Short CBC 10/20/23 Range/Units 13:07 WBC 6.40 (4.8-10.8) K/ul Hgb 16.0 (12.0-16.0) g/dl Hct 45.1 (37.0-47.0) % Plt Count 298 (130-400) K/uL BMP 10/20/23 13:07 Sodium 138 Potassium 3.6 Chloride 104 Carbon Dioxide 24 BUN 20 Creatinine 0.76 Glucose 126 H Calcium 10.1 Liver Function 10/20/23 Range/Units 13:07 Total Bilirubin 1.3 H (0.2-1.0) mg/dl AST 30 (13-39) U/L ALT 24 (7-52) U/L Alkaline Phosphatase 88 (34-104) U/L Albumin 4.7 (3.4-5.0) gm/dl Urine 10/20/23 Range/Units 12:40 Urine Color Yellow Urine Appearance Clear (Clear) Urine pH 8.0 H (4.5-7.5) Ur Specific [place] 1.005 (1.000-1.030) Urine Protein Negative (Negative) Urine Glucose (UA) Negative (Negative) Diagnostic Findings Abdomen/Pelvis CT 10/20/23 13:[address] WITHOUT CONTRAST CT DOSE: 1331.66 mGy.cm HISTORY: Acute right-sided flank pain flank pain TECHNIQUE: Multiaxial CT images of the abdomen and pelvis were performed without contrast. A dose lowering technique was utilized adhering to the principles of ALARA. COMPARISON STUDY: Renal ultrasound 10/11/2023, CT abdomen and pelvis 11/29/2018 FINDINGS: Clear lung bases. No free air. Indeterminate 1.2 cm hypodense splenic lesion. [id number] pancreatic atrophy. Unremarkable left adrenal gland. 11 mm right adrenal gland adenoma. Cholecystectomy. Hepatic steatosis. 4 mm nonobstructing calculus of the inferior pole right kidney. 4 mm calculus of the distal right ureter/ureterovesicular junction results in mild right-sided hydroureteronephrosis. 9 mm nonobstructing calculus of the inferior pole left kidney. 2.3 cm water attenuation structure of the lateral interpolar left kidney with an adjacent punctate calcification. No left-sided ureteral calculi or hydronephrosis. Partial distention of the urinary bladder with air in the bladder lumen. Air also noted within the vaginal introitus with air is associated mild soft tissue thickening. No abdominal aortic aneurysm or lymphadenopathy. No bowel obstruction or bowel wall thickening. Tiny hiatal hernia. Colonic diverticulosis. Normal appendix. No ascites or mesenteric inflammation. Degenerative changes of the spine, pelvis and hips. IMPRESSION: 1. A 4 mm calculus of the distal right ureter/ureterovesicular junction results in mild hydroureteronephrosis. 2. Nonobstructing bilateral nephrolithiasis. 3. No bowel obstruction or bowel wall thickening. 4. Colonic diverticulosis. 5. Hepatic steatosis. ACT 112: Negative or not required by law. The above report was generated using voice recognition software. It may contain grammatical, syntax or spelling errors. Electronically signed by: Chirag Henriquez M.D. 10/20/2023 2:56 PM Supervising Physician Co-Signing Physician Notes Pt was seen and examined by myself, Bella Ko MD on the day of service. Care was coordinated with Lucy Avila PA-C. 73yoF with obstructive uropathy. On exam, states that pain was well controlled but she did not want to be discharged home as she lives alone. Abdomen slightly tender in bilateral lower abdomen quadrants. UA not suggestive of infection, urine Cx pending. Urology consult, pain control, NPO after midnight, empiric IV Rocephin. Otherwise as above. I spent a total [id number] coordinating, documenting, and providing care for this patient excluding time spent in the performance of separately billed services
[2023-10-20] MEDS: Patient's HEIGHT &/or WEIGHT Needed SCH (18:20)
[2023-10-20] MEDS ORDERED: MAGNESIUM HYDROXIDE SUSP 30 ML UDC PO PRN (18:35)
[2023-10-20] MEDS ORDERED: ONDANSETRON INJ 2 MG/ML 2 ML VIAL IV PRN (18:35)
[2023-10-20] MEDS ORDERED: MoRPHine SULFATE 2 MG/ML CARP IV PRN (18:35)
[2023-10-20] MEDS ORDERED: oxyCODONE HCL IR 5 MG TAB (IMMEDIATE RELEASE) PO PRN (18:35)
[2023-10-20] MEDS ORDERED: KETOROLAC TROMETHAMINE 15 MG/ML VIAL IV PRN (19:00)
[2023-10-20] MEDS: ACETAMINOPHEN 1,000 MG/100 ML VIAL IV STA (19:06)
[2023-10-20] MEDS: SODIUM CHLORIDE 0.9% 1,000 ML IV SCH (19:07)
[2023-10-20] MEDS: cefTRIAXone SODIUM 2,000 MG in DEXTROSE 5 % MINI-B 50 ML IV SCH (19:56)
[2023-10-20] MEDS: PHENAZOPYRIDINE HCL 100 MG TAB PO PRN (19:56)
--- NOTE | 2023-10-20 21:26 | Urology Consultation ---
Date of Consultation October 20, 2023 Assessment & Plan (1) Ureterolithiasis: The patient has been admitted on the hospital service. From a urologic perspective we recommend the following: Provide analgesics provide antiemetics Provide IV fluid for hydration Provide Flomax for expulsive therapy Although urinalysis not indicative of infection she has had a urine culture sent. She has been placed on empiric Rocephin and this can be continued and antibiotics be tailored based on pending culture results. Would recommend making the patient n.p.o. after midnight. She will be reevaluated the morning of 10/21/2023 for determination if she require cystoscopic intervention. At the present time the patient is noted be normotensive without tachycardia or fever. She also does not have leukocytosis or acute kidney injury. She is nontoxic-appearing so I feel conservative treatment is warranted at the present time. Additional recommendations be forthcoming based on her clinical course as unfolds History of Present Illness Reason for Consultation: Nephrolithiasis Attending Physician: Bella Ko MD History of Present Illness This a 73-year-old female who was admitted to the hospital secondary to pain secondary to a kidney stone. Patient notes that she has been having right flank that radiates to her abdomen. She has had some associated nausea vomiting but denies any fever shakes or chills. She denies any dysuria but does report hematuria. The patient notes that she has had kidney stones in the past and has required cystoscopic intervention. She notes that her most recent intervention was performed in 2019records were reviewed and she did have a cystoscopy with a left laser lithotripsy and left ureteral stent placement by Dr. Higginbotham in January 2019. Since arrival to hospital patient has had labs and imaging which independent reviewed. Labs include a CBC her white blood cell count, hemoglobin, hematocrit, platelet count were normal. Chemistry profile showed sodium and potassium along with the BUN and creatinine were normal. Urinalysis was not indicative of infection. A CT scan of the abdomen pelvis showed the patient had a 4 mm kidney stone in the distal right ureter resulting in mild hydronephrosis. At the time my interview the patient was resting comfortably in bed and she was in no distress. Allergies Allergy/AdvReac Type Severity Reaction Status Date / Time latex Allergy Mild HANDS ITCH Verified 10/20/23 16:15 WITH GLOVES MELISSA Inhibitors AdvReac Intermediate Cough Verified 10/20/23 16:15 Home Medications Medication Instructions Recorded Confirmed Type acetaminophen 650 mg 650 mg PO HS 01/03/19 10/20/23 History tablet,extended release (Tylenol Arthritis Pain) magnesium 250 mg tablet 250 mg PO PM 01/03/19 10/20/23 History multivitamin 1 tab PO QAM 01/03/19 10/20/23 History cholecalciferol (vitamin D3) 50 50 mcg PO DAILY 04/24/20 10/20/23 History mcg (2,000 unit) capsule amlodipine 2.5 mg tablet 2.5 mg PO DAILY #90 tabs 12/26/21 10/20/23 Rx pantoprazole 20 mg tablet,delayed 20 mg PO DAILY 10/19/23 10/20/23 History release cetirizine 10 mg tablet 10 mg PO DAILY 10/20/23 10/20/23 History losartan 100 1 tab PO QAM 10/20/23 10/20/23 History mg-hydrochlorothiazide 25 mg tablet melatonin 1 mg tablet 1 mg PO HS 10/20/23 10/20/23 History polyethylene glycol 3350 17 17 g PO DAILY 10/20/23 10/20/23 History gram/dose oral powder potassium chloride 20 mEq 20 meq PO QAM 10/20/23 10/20/23 History tablet,extended release Patient History Medical History Prediabetes Ureterolithiasis Osteopenia (~2019) Dyslipidemia Irritable bowel syndrome GERD (gastroesophageal reflux disease) Hiatal hernia History of skin cancer BCC HTN (hypertension) Surgical History History of cystoscopy WITH LITHOTRIPSY AND STONE REMOVAL History of cardiac cath 2015 OR 2016 [facility]-NO STENTS NEEDED-DONE D/T SOB Nausea and vomiting after administration of anesthetic agent AND SLOW TO WAKE UP History of Mohs micrographic surgery for skin cancer History of cataract surgery R/L History of cholecystectomy History of hysterectomy OVARIES LEFT History of colonoscopy Family History Sister Family history of diabetes mellitus Breast cancer Father Myocardial infarction Hypertension Mother Pancreatic cancer Denies family history of Ovarian cancer Prostate cancer Colorectal cancer Social History Smoking Status: Never smoker Second Hand Exposure: Yes (SPOUSE DID BEFORE HE PASSED); Do You Dip or Chew Tobacco: No; Hx Alcohol Use: No Hx Substance Use: No Preferred Language: Estonian Communication Ability: Effective Visual Impairment: Limited Hearing Ability: Normal 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 Beliefs That Will Affect Care: None marital status: / Current Living Situation: Alone current occupational status: retired Other Information That Helps Us Care for You: No Feels Safe at Home: Yes Safety Concerns: Feels Safe At This Time Childhood Exposure to Second-Hand Smoke: Yes caffeine: No Dental Care, Regularly: No Physical Activity Frequency: Daily Physical Activity Frequency Comment: walking daily Seatbelt Use: always Sunscreen Use: Yes Assistive Devices: Cane, Contacts and Glasses Review of Systems Constitutional: no fever and no chills Ear, Nose, Mouth, Throat: no hearing loss Respiratory: no cough and no dyspnea Cardiovascular: no chest pain Gastrointestinal: + abdominal pain (Radiating from right f lank), + nausea and + vomiting Genitourinary: no dysuria Musculoskeletal: no back pain Integumentary: no rash Neurologic: no localized weakness Physical Exam Constitutional: WD/WN, vitals as above Eyes: no conjunctival abnormality ENMT: Ears: no hearing impairment and no external ear abnormality Mouth: no oropharynx abnormality Neck: trachea midline Respiratory: normal respiratory effort; no respiratory distress and no labored breathing Cardiovascular: Rate/Rhythm: regular rate and regular rhythm Gastrointestinal (Abdomen): At the time my exam the patient had no abdominal pain. Her abdomen is soft and nondistended. There is no rebound tenderness or guarding. Musculoskeletal: No calf tenderness Skin: no rashes Neurologic: moves all extremities Psychiatric: A+Ox3, euthymic affect Genitourinary: No CVA tenderness with percussion bilaterally at the time of my exam Results & Data Vital Signs (Past 12 Hours) Vital Signs Temp Pulse Pulse Resp BP BP Pulse Ox 10/20/23 19:32 10/20/23 19:32 36.3 C L 79 16 171/93 H 97 10/20/23 18:00 77 18 173/86 H 98 10/20/23 16:52 74 20 186/93 H 98 10/20/23 16:04 99 10/20/23 15:42 76 23 175/78 H 99 10/20/23 12:41 36.8 C 77 20 150/84 H 98 O2 Del Method 10/20/23 19:32 Room Air 10/20/23 19:32 Room Air 10/20/23 18:00 Room Air 10/20/23 16:52 Room Air 10/20/23 16:04 Room Air 10/20/23 15:42 Room Air 10/20/23 12:41 Room Air PG Care Time/CCT Total # of Minutes Spent Total Time Spent with Patient: Total time spent is greater than 50% in coordination of care (as documented) at patient's floor/unit and/or counseling patient: Coding Level of Care Code 83486 INT INP/OBS CARE 3/75MIN Diagnoses Ureterolithiasis N20.1
[2023-10-20] MEDS: MELATONIN 3 MG TAB PO SCH (21:38)
[2023-10-21] MEDS: ACETAMINOPHEN 500 MG TAB PO SCH (05:20)
[2023-10-21] MEDS: TAMSULOSIN HCL 0.4 MG CAP PO SCH (07:38)
[2023-10-21] MEDS: PANTOprazole 40 MG TAB PO SCH (07:38)
[2023-10-21] MEDS: amLODIPine BESYLATE 5 MG TAB PO SCH (07:39)
[2023-10-21] MEDS: CETIRIZINE HCL 10 MG TABLET PO SCH (07:39)
[2023-10-21] MEDS: CHOLECALCIFEROL 25 MCG (1000 UNITS) TAB PO SCH (07:39)
[2023-10-21] MEDS: POLYETHYLENE (MIRALAX) 17 GM PACK PO SCH (07:40)
[2023-10-21] MEDS: LOSARTAN/HCTZ 50/12.5MG TAB PO SCH (07:40)
[2023-10-21] MEDS: POTASSIUM CHLORIDE CRTAB 20 MEQ TABCR PO SCH (07:40)
--- NOTE | 2023-10-21 07:41 | Urology Progress Note ---
Date of Service October 21, 2023 Assessment & Plan (1) Ureterolithiasis: (2) Hydronephrosis: Plan: Follow-up of distal right ureteral stone Patient afebrile, hemodynamically stable Labs 10/19 showed normal renal function and no leukocytosis, today's labs pending at time of visit Ua was not suggestive of infection, UC pending Denies stone passage overnight Pain is controlled at present Discussed options for management including trial of passage versus surgical intervention Discussed that she has a decent probability of passing stone spontaneously given stone size and location She would like to consider options further Will keep n.p.o. for now and recheck later this morning Patient reassessed this morning- She denies pain Labs are stable She would like to go home and try to pass stone spontaneously Will arrange outpatient follow-up with our service for definitive stone management Recommend discharge to home with tamsulosin, short course of empiric antibiotics, and prn analgesia will sign off Admission and Anticipated Discharge Date Admission Date: October 20, 2023 Subjective Patient seen and examined at bedside She is awake and resting in bed, no apparent distress No acute issues overnight Denies stone passage Reports intermittent "jabs" but denies any severe or persistent flank pain Discomfort relieved with Tylenol this morning Voiding spontaneously without difficulty Denies nausea/vomiting Denies fever/chills Review of Systems Constitutional: as per Subjective / HPI Gastrointestinal: as per Subjective / HPI Genitourinary: as per Subjective / HPI Physical Exam Constitutional: well developed, well nourished and + obese; no acute distress Respiratory: normal respiratory effort; no respiratory distress and no labored breathing Gastrointestinal (Abdomen): Inspection/Auscultation: abdomen normal to inspection Musculoskeletal: Head/Neck/Chest: normocephalic Neurologic: moves all extremities and awake Psychiatric: Orientation: alert and oriented x 3 Results & Data Vital Signs (Past 12 Hours) Vital Signs Temp Pulse Pulse Resp BP Pulse Ox O2 Del Method 10/21/23 07:26 36.4 C L 75 16 128/75 96 Room Air 10/20/23 22:06 36.3 C L 73 18 130/75 96 Room Air 10/20/23 19:32 Room Air 10/20/23 19:32 36.3 C L 79 16 171/93 H 97 Room Air PG Care Time/CCT Total # of Minutes Spent Total Time Spent with Patient: Total time spent is greater than 50% in coordination of care (as documented) at patient's floor/unit and/or counseling patient: Coding Level of Care Code 72378 SUB INP/OBS CARE 09/02MIN Diagnoses Ureterolithiasis N20.1 Hydronephrosis N13.30
[2023-10-21 07:53] LABS: Hematocrit (blood only) 42.2 % (37.0-47.0); Hemoglobin 14.8 g/dl (12.0-16.0); Mean Corpuscular Hemoglobin 30.5 pg (25.0-34.0); Mean Corpuscular Hgb Conc 35.1 g/dL (32.0-36.0); Mean Platelet Volume 9.3 fL (9.4-12.4); Platelet Count 263 K/uL (130-400); RDW Coefficient of Variation 12.1 % (11.5-14.5); RDW Standard Deviation 38.9 fL (36.4-46.3); Red Blood Count 4.85 M/uL (4.20-5.40); White Blood Count 6.21 K/ul (4.8-10.8)
[2023-10-21 08:06] LABS: Calcium 9.1 mg/dl (8.6-10.3); Creatinine Clr Calc Pharmacy 75.5 ml/min; Est GFR (African American) 76.1 ml/min; Est GFR (Non-African American) 65.6 ml/min; Potassium 3.9 mmol/L (3.5-5.1)
--- NOTE | 2023-10-21 12:59 | Discharge Summary ---
Discharge Summary Date of Service October 21, 2023 Notes For Next Care Provider ureterolithiasis, home with urology follow up Medication Changes From Visit Bactrim BID x 2 days Flomax daily Pyridium TID PRN Admission HPI Per Admitting Provider Patient is 73-year-old female with PMH HTN, HLD, prediabetes, GERD, kidney stones, obesity presented to ER with complaint of right lower abdominal pain started early this morning. History obtained from patient, outpatient chart review. Patient had cystoscopy yesterday by Dr. Higginbotham for painless gross hematuria. States this morning RLQ abdominal pain that worsened throughout the day. Also complains of nausea and vomiting once. She reports urinary frequency. Denies any noted dysuria or hematuria. Ware chilled today but denies any known fever. Denies diaphoresis, diarrhea, constipation, M[place], dizziness, syncope, neck pain, CP, SOB, cough, sore throat, paresthesias, weakness, extremity edema, rashes. Admission Exam Per Admitting Provider General: mild distress secondary to abdominal discomfort, obese elderly female Head: normocephalic, atraumatic Eyes: conjunctiva non-injected, anicteric ENT: normal inspection external ears, nose, mucous membranes moist Neck: supple, trachea midline Lungs: clear, no respiratory distress, no wheezing/rhonchi/rales CV: RRR, no murmur, no pretibial edema Abd: protuberant, normal BS, soft, +RLQ tenderness to palpation. no CVA tenderness to palpation Ext: no cyanosis, no calf tenderness Neuro: A&O x 3, no focal deficits noted, normal affect Skin: warm, dry Principal Dx & Hospital Course #1 = Principal Diagnosis (1) Ureterolithiasis: (2) Hydronephrosis: (3) HTN (hypertension): (4) GERD (gastroesophageal reflux disease): (5) Prediabetes: (6) Dyslipidemia: Plan This is a 73-year-old female with PMH HTN, HLD, prediabetes, GERD, kidney stones, obesity presented to ER with complaint of right lower abdominal pain, urinary frequency started early this morning. Recently had cystoscopy 10/19/23 for painless hematuria. In ER patient afebrile, hypertensive, otherwise vitals stable. No leukocytosis. renal functions WNL, UA +blood. CT abd/pelvis: A 4 mm calculus of the distal right ureter/ureterovesicular junction results in mild hydroureteronephrosis. Nonobstructing bilateral nephrolithiasis. No bowel obstruction or bowel wall thickening. Urine culture pending but started empirically on Rocephin. Strain urine overnight without any stone but pain has completely resolved. Discussed with urology this morning about desire to be discharged home to try and have stone passed spontaneously. Instructed on continuous urine straining. Urology to arrange outpatient follow-up for definitive stone management. Discharging home on Flomax, short course of empiric urinary antibiotics and Pyridium for as needed urinary discomfort. Urology to follow-up on final urine cultures. Patient hemodynamically stable and comfortable at time of discharge home. Discharge Exam Gen: WD/WN, NAD, sitting in bedside chair, morbidly obese, A&Ox3 HEENT: Normocephalic, atraumatic, conjunctivae moist, sclerae anicteric, mucous membranes moist Lung: Clear to Auscultation bilaterally, no wheezes/rales/rhonchi Heart: Regular rate, regular rhythm, no murmurs, rubs, or gallops Abdomen: Soft, NT, ND +BS x 4 Extremities: no edema Skin: Warm, no rash Updated Medication List Medication Instructions Recorded Confirmed Type acetaminophen 650 mg 650 mg PO HS 01/03/19 10/20/23 History tablet,extended release (Tylenol Arthritis Pain) magnesium 250 mg tablet 250 mg PO PM 01/03/19 10/20/23 History multivitamin 1 tab PO QAM 01/03/19 10/20/23 History cholecalciferol (vitamin D3) 50 50 mcg PO DAILY 04/24/20 10/20/23 History mcg (2,000 unit) capsule amlodipine 2.5 mg tablet 2.5 mg PO DAILY #90 tabs 12/26/21 10/20/23 Rx pantoprazole 20 mg tablet,delayed 20 mg PO DAILY 10/19/23 10/20/23 History release cetirizine 10 mg tablet 10 mg PO DAILY 10/20/23 10/20/23 History losartan 100 1 tab PO QAM 10/20/23 10/20/23 History mg-hydrochlorothiazide 25 mg tablet melatonin 1 mg tablet 1 mg PO HS 10/20/23 10/20/23 History polyethylene glycol 3350 17 17 g PO DAILY 10/20/23 10/20/23 History gram/dose oral powder potassium chloride 20 mEq 20 meq PO QAM 10/20/23 10/20/23 History tablet,extended release phenazopyridine 100 mg tablet 100 mg PO TID PRN pain #9 tabs 10/21/23 Rx (Pyridium) sulfamethoxazole 800 1 tab PO BID #4 tabs 10/21/23 Rx mg-trimethoprim 160 mg tablet (Bactrim DS) tamsulosin 0.4 mg capsule 0.4 mg PO QAM #30 caps 10/21/23 Rx Hospital Stay Data Consultations 10/20/23 17:05 ED Decision to Admit Stat 10/20/23 18:35 Consult Urology Routine Diagnostic Imagining Performed 10/20/23 13:55 CT abd pelvis wo con Stat Pending Results Patient Have Any Pending Studies at Discharge: Yes Discharge Instructions Given to Patient (Per Discharging Provider) MEDICATION CHANGES: Bactrim (antibiotic) by mouth twice daily x 2 days for UTI. Continue Flomax daily. Pyridium up to three times a day as needed for urinary discomfort. SUMMARY OF TEST RESULTS: You were admitted with urinary pain in follow-up of distal right ureteral stone CT abd/pelvis: A 4 mm calculus of the distal right ureter/ureterovesicular junction results in mild hydroureteronephrosis. Nonobstructing bilateral nephrolithiasis Urine culture pending - will complete 3 day antibiotic course per urology. Urology to follow-up on final urine culture. Continue straining urine at home. PENDING TEST RESULTS: Final urine culture RECOMMENDATIONS FOR FOLLOW-UP: Follow up with PCP as scheduled. Urology will arrange outpatient follow-up for definitive stone management Complete antibiotic in its entirety. Continue medication regimen as scheduled aside from changes noted above. OTHER INSTRUCTIONS: Seek medical attention if you have: * temperature above 101 * chest pain or trouble breathing * abdominal pain, nausea, vomiting * diarrhea, dark stools or bloody stools * any unanswered questions or concerns Call 911 if symptoms are severe. Please take good care of yourself. Call if you have any questions or problems. You can reach a [facility] hospitalist on duty at [facility] 24 hours a day by calling [phone]. Total Time Total Time Spent Total Time Spent (In Minutes): 45 Supervising Physician Co-Signing Physician Notes Pt seen and examined by me, care coordinated w/ Kishore Landa PA-C, pls refer to her note above for further detail. I agree and take responsibility for the plan. Pt is a 73 yo F w/ HTN, HLD, prediabetes, GERD, kidney stones, obesity presented w/right lower abdominal pain, urinary frequency started early this morning. Had cystoscopy on 10/19/[address] abd/pelvis: A 4 mm calculus of the distal right ureter/ureterovesicular junction results in mild hydroureteronephrosis. Urine culture pending but started empirically on Rocephin. Urology consulted - pt wishes to be discharged home to try and have stone passed spontaneously. Urology to arrange outpatient follow-up for definitive stone management. Discharging home on Flomax, short course of emp iric urinary antibiotics and Pyridium for as needed urinary discomfort. Urology to follow-up on final urine cultures. Pt is currently sitting up in chair, in no acute distress. She is awake alert oriented, answering appropriately. Denies any fever chills chest pain shortness of breath, also denies any abdominal pain. Patient hemodynamically stable and comfortable at time of discharge home. MD Daniele
== END 2023-10-21 13:47 | disposition home or self-care (01) | DRG 694 ==
LOC: ED 12:06 → 3N 16:50 → SUATTDRO 16:50 → 3N 18:36